=== PATIENT | male | born 1955 | race Caucasian/White ===

== ENCOUNTER 2025-05-22 08:02 | Inpatient (IN) | payer OTHER ==
[~2025-05-22] VITALS: Ht 193 cm; Wt 113.9 kg
--- NOTE | 2025-05-22 08:07 | NUR ---
PACIENTE ALERTA Y ORIENTADO X 3. REFIERE DOLOR ABDOMINAL Y VOMITOS X 12 DESDE TANISHA QUE ENTIENDE FUE POR ALGO QUE COMIO.
[2025-05-22] MEDS ORDERED: FAMOTIDINE/PF 20 MG/2 ML VIAL IV PUSH STA (08:23)
[2025-05-22] MEDS ORDERED: 0.9 % SODIUM CHLORIDE 1,000 ML IV STA (08:23)
[2025-05-22] MEDS ORDERED: ONDANSETRON HCL 2 MG/ML VIAL IV STA (08:23)
[2025-05-22 09:45] LABS: ALT/SGPT 28.0 U/L (12-78); AST/SGOT 13.0 U/L (15-37); BILIRUBIN TOTAL 0.86 mg/dL (0.3-1.2); BUN CREA RATIO 18.0 (7.0-25.0); CREATININE SERUM 1.09 mg/dL (0.70-1.30); GFR 67.47; GLOBULINA 3.2 G/DL (2.4-3.5); GLUCOSE FASTING 137.0 mg/dL (65-100); OSMOLALITY SERUM 290.0 MOSM/KG (275-295)
--- NOTE | 2025-05-22 09:53 | NUR ---
PTE. EVALUADO POR DR. LEON, PRESENTANDO VOMITOS PERSISTENTES, SE REALIZA GAUTAM DE MUESTRAS DE CLEMENTE BAJO MEDIDAS ASEPTICAS , ADMINISTRACION DE MEDICAMENTOS YUDY ORDEN MEDICA Y SE ORIENTA SOBRE PROCEDIMIENTOS REALIZADOS Y PROCESOM DE RE-EVALUACION MEDICA. CLIENTE ALERTA Y ORIENTADO JESSIE INTERVENCION POR PERSONAL RN.
[2025-05-22] MEDS ORDERED: DIATRIZOATE MEGLUMINE, SODIUM 30 ML BOTTLE PO STA (10:03)
[2025-05-22 10:58] LABS: BASO % 0.2 % (0.1-1.2); EOS # 0.00 (0.04-0.54); EOS % 0.0 % (0.7-7.0); LYMPH # 1.03 (1.18-3.74); LYMPH % 10.4 % (19.3-53.1); MEAN PLATELET VOLUME 9.70 fl (9.4-12.4); MONO # 0.48 (0.24-0.82); MONO % 4.8 % (4.7-12.5); NEUT # 8.40 (1.56-6.13); NEUT % 84.4 % (34.0-71.1); RED CELL DISTRIBUTION WIDTH 13.4 % (11.6-14.4)
--- NOTE | 2025-05-22 11:07 | NUR ---
SE TRASLADA CLIENTE A SECCION K-8 Y SE INSERTA TUBO NASOGASTRICO #16 BAJO MEDIDAS ASEPTICAS, SE ADMINISTRA CONTRASTE GASTROVIEW Y SE ORIENTA SOBRE PROCEDIMIENTOS REALIZADOS Y PROCESO DE EVALUACION MEDICA. PENDIETE CT ABDOMINO PELVICO. PTE ALERTA Y ORIENTADO JESSIE INSERCCION DE TUBO SE MANTIENE EN OBSERVACION POR CAMBIOS DENTRO DE DANIELS CONDICION.
[2025-05-22] MEDS ORDERED: MORPHINE SULFATE 4 MG/ML CARTRIDGE IV STA ×2 (12:33→14:30)
--- NOTE | 2025-05-22 15:15 | NUR ---
SE PROCEDE A INSERTAR UN POCO MAS PROFUNDO EL TUBO NASOGASTRICO POR ORDEN MEDICA VERBAL DEL DR. LEON. SE AUSCULTA TUBO PARA VERIFICAR QUE ESTA EN POSICION Y EL MISMO SE ESCUCHA EN POSICION Y HAY RETORNO EN EL MISMO. SE NOTIFICA AL DR. LEON Y LA.
[2025-05-22] MEDS ORDERED: KETOROLAC TROMETHAMINE 15 MG VIAL IV STA (15:17)
[2025-05-22] MEDS ORDERED: MORPHINE SULFATE 4 MG/ML CARTRIDGE IV PRN (15:30)
[2025-05-22] MEDS ORDERED: PIPERACILLIN/TAZOBACTAM SODIUM 3.375 GM in DEXTROSE 5 % IN WATER 100 ML IV ONE (15:30)
[2025-05-22] MEDS ORDERED: 0.9 % SODIUM CHLORIDE 1,000 ML IV SCH (16:15)
[2025-05-22] MEDS ORDERED: ONDANSETRON HCL 4 MG in 0.9 % SODIUM CHLORIDE 50 ML IV PRN (16:15)
--- NOTE | 2025-05-22 16:21 | NUR ---
SE ORIENTRA PACIENTE SOBRE TX MEDICO Y ALVERTO REFIERE ENTENDER Y ACEPTAR EL MISMO. SE PROCEDE A NETTA MUESTRAS DE LAB BAJO MEDIDAS ASEPTICAS Y SE ADMINISTRAN MEDICAMENTOIS YUDY ORDEN MEDICA BAJO MEDIDAS ASEPTICAS.
[2025-05-22 16:46] LABS: INR 1.03
[2025-05-22 17:46] LABS: URINE APPEARANCE Clear; URINE BILIRRUBIN Negative (NEGATIVE); URINE COLOR Yellow; URINE GLUCOSE Negative (NEGATIVE); URINE LEUKOCYTE Negative; URINE NITRATE Negative; URINE PROTEIN Trace (NEGATIVE); URINE UROBILINOGEN 1.0 E.U./dl
[2025-05-22 17:50] LABS: URINE BACTERIA 9.5 uL (0.0-1933); URINE EPITHELIAL CELLS 2.1 uL (0.0-38.8); URINE RBC 20.8 uL (0.0-20.8); URINE WBC 1.9 uL (0.0-23.2)
[2025-05-22 17:54] LABS: URINE BLOOD TRACE; URINE CAST 0.00 uL (0.0-1.40); URINE KETONE 40 (NEGATIVE)
[2025-05-22] MEDS ORDERED: PIPERACILLIN/TAZOBACTAM SODIUM 3.375 GM in DEXTROSE 5 % IN WATER 100 ML IV SCH (18:00)
[2025-05-22] MEDS ORDERED: BUPIVACAINE HCL 30 ML VIAL IJ ONE (21:00)
[2025-05-22] MEDS ORDERED: SUGAMMADEX SODIUM 200 MG/2 ML VIAL IV ONE (21:00)
[2025-05-22] MEDS ORDERED: KETOROLAC TROMETHAMINE 30 MG VIAL IV SCH (21:15)
[2025-05-22 22:05] VITALS: BP 109/66; O2SAT 99
[2025-05-23] VITALS: BP 107/61; O2SAT 96
[2025-05-23] MEDS ORDERED: KETOROLAC TROMETHAMINE 30 MG VIAL IV SCH (08:00)
[2025-05-23 08:33] VITALS: BP 119/66; O2SAT 96
[2025-05-23] MEDS ORDERED: SUCRALFATE 1 G TABLET PO SCH (09:00)
[2025-05-23] MEDS ORDERED: FAMOTIDINE/PF 20 MG in 0.9 % SODIUM CHLORIDE 8 ML IV PUSH SCH (09:00)
[2025-05-23] MEDS ORDERED: LACTOBACILLUS ACIDOPHILUS 1 CAP CAP PO SCH (09:00)
[2025-05-23 16:49] VITALS: BP 121/71; O2SAT 96
[2025-05-24 00:30] VITALS: BP 127/78; O2SAT 97
[2025-05-24 07:26] LABS: BASO % 0.3 % (0.1-1.2); EOS # 0.05 (0.04-0.54); EOS % 0.8 % (0.7-7.0); LYMPH # 1.06 (1.18-3.74); LYMPH % 17.2 % (19.3-53.1); MEAN PLATELET VOLUME 9.90 fl (9.4-12.4); MONO # 0.52 (0.24-0.82); MONO % 8.4 % (4.7-12.5); NEUT # 4.52 (1.56-6.13); NEUT % 73.1 % (34.0-71.1); RED CELL DISTRIBUTION WIDTH 13.3 % (11.6-14.4)
[2025-05-24 08:01] LABS: BUN CREA RATIO 20.0 (7.0-25.0); CREATININE SERUM 0.85 mg/dL (0.70-1.30); GFR 89.9; GLUCOSE FASTING 103.0 mg/dL (65-100); OSMOLALITY SERUM 287.0 MOSM/KG (275-295)
[2025-05-24] MEDS ORDERED: ENOXAPARIN SODIUM 40 MG/0.4 ML SYRINGE SUBCUTANEO SCH (09:00)
[2025-05-24 16:00] VITALS: BP 121/85; O2SAT 97
[2025-05-24] MEDS ORDERED: ENOXAPARIN SODIUM 100 MG/ML SYRINGE SUBCUTANEO SCH (17:00)
[2025-05-24 23:56] VITALS: BP 117/67; O2SAT 97
[2025-05-25 08:00] VITALS: BP 124/83; O2SAT 96
[2025-05-25 16:36] VITALS: BP 128/82; O2SAT 97
[2025-05-26 00:50] VITALS: BP 123/76; O2SAT 98
[2025-05-26 08:00] VITALS: BP 125/73; O2SAT 97
== END 2025-05-26 17:35 | disposition home or self-care (01) | DRG 331 ==
LOC: ER 08:02 → SURH 16:34
PROVIDERS: General Practice; Surgery; ADMIT Student in an Organized Health Care Education/Training Program; ATTEND Student in an Organized Health Care Education/Training Program
PROC: 0DJD4ZZ Inspection of Lower Intestinal Tract, Percutaneous Endoscopic Approach (ICD-10-PCS; 2025-05-22)
PROC: BW21YZZ Computerized Tomography (CT Scan) of Abdomen and Pelvis using Other Contrast (ICD-10-PCS; 2025-05-22)
PROC: 0DH68UZ Insertion of Feeding Device into Stomach, Via Natural or Artificial Opening Endoscopic (ICD-10-PCS; 2025-05-22)
PROC: 0DB80ZZ Excision of Small Intestine, Open Approach (ICD-10-PCS; principal; 2025-05-22 16:00)
DX: K56.690 Other partial intestinal obstruction (principal); Z53.31 Laparoscopic surgical procedure converted to open procedure